=== PATIENT | female | born 1975 | race Caucasian/White ===

== ENCOUNTER 2020-06-09 11:42 | Emergency (ER) | payer SELFPAY ==
[~2020-06-09] VITALS: Ht 152.4 cm; Wt 63.5 kg
[2020-06-09 11:46] VITALS: Ht 152.4 cm; Wt 63.5 kg
[2020-06-09 12:37] VITALS: BP 135/81
== END 2020-06-09 12:37 | disposition home or self-care (01) ==
LOC: ED 11:42
DX: R09.81 Nasal congestion (principal); M79.10 Myalgia, unspecified site; E11.9 Type 2 diabetes mellitus without complications; E03.9 Hypothyroidism, unspecified; Z20.828 Contact with and (suspected) exposure to other viral communicable diseases
CPT/HCPCS: U0003